=== PATIENT | male | born 1940 | race Caucasian/White ===

== ENCOUNTER 2019-06-22 09:13 | Emergency (ER) | payer BC, OTHER ==
[2019-06-22 09:27] VITALS: BP 148/87; PULSE 58; TEMP 98.6; BMI 25.5
--- NOTE | 2019-06-22 09:40 | PDOC ---
History of Present Illness - General Chief Complaint: Bite Stated Complaint: RT ARM ? TICK BITE Time Seen by Provider: 06/22/19 09:37 History Source: Patient - History of Present Illness Initial Comments: 06/22/19 09:45 Pt presents to the ED because he discovered a cherelle on his R forearm arm and is concerned that he had a tick bite. Denies other complaints. Denies seeing a tick. 06/22/19 09:57 Past History - Past Medical History Allergies/Adverse Reactions: Allergies Allergy/AdvReac Type Severity Reaction Status Date / Time No Known Allergies Allergy Verified 06/22/19 09:14 Home Medications: Ambulatory Orders Atenolol [Tenormin] 25 mg PO DAILY 12/05/12 Atorvastatin Calcium [Lipitor] 5 mg PO DAILY 12/05/12 Clopidogrel Bisulfate [Plavix] 75 mg PO DAILY 12/05/12 Cardiac Disorders: Yes (CAD, RBBB, IRREGULAR HEART RATE) COPD: No HTN: Yes Hypercholesterolemia: Yes - Surgical History Abdominal Surgery: Yes (HERNIA REPAIR, REPAIR FOR GI BLEED) Cardiac Surgery: Yes (4 BYPASS, 8 STENTS) - Immunization History Td Vaccination: Yes - Suicide/Smoking/Psychosocial Hx Smoking Status: No Smoking History: Never smoked Have you smoked in the past 12 months: No Number of Cigarettes Smoked Daily: 0 Cigars Per Day: 1 Information on smoking cessation initiated: No Hx Alcohol Use: (occasional) Review of Systems - Review of Systems Able to Perform ROS?: Yes Is the patient limited [place] proficient: No Integumentary: Yes: Bruising (single 1 cm bruise to R forearm) *Physical Exam - Vital Signs Last Vital Signs Temp Pulse Resp BP Pulse Ox 98.6 F 58 L 16 148/87 97 06/22/19 09:13 06/22/19 09:13 06/22/19 09:13 06/22/19 09:13 06/22/19 09:13 - Physical Exam Comments: 06/22/19 09:52 Gen: Alert, NAD Skin: 1 cm ecchymosis, with very small scab in center. No erythema or central clearing. 06/22/19 09:52 Medical Decision Making - Medical Decision Making 06/22/19 09:57 pt presents to the Ed with concern about a tick bite. Does not report seeing a tick. Area of concern is consistent with an ecchymosis, not a rash consistent with tick bite. Will discharge. *DC/Admit/Observation/Transfer Diagnosis at time of Disposition: Contusion Qualifiers: Encounter type: initial encounter Contusion area: forearm - Discharge Dispostion Disposition: HOME Condition at time of disposition: Good Decision to Admit order: No - Referrals - Patient Instructions Printed Discharge Instructions: DI for Contusion Additional Instructions: you came to the ED for a cherelle on your arm that you were concerned was a tick bite. It is not a tick bite--it is most likely a small bruise. You should return to the ED for new or worsening symptoms. - Post Discharge Activity
== END 2019-06-22 09:55 | disposition home or self-care (01) ==
LOC: FER 09:13
DX: S50.11XA Contusion of right forearm, initial encounter (principal); X58.XXXA Exposure to other specified factors, initial encounter; Y93.9 Activity, unspecified; Y92.9 Unspecified place or not applicable; I25.10 Atherosclerotic heart disease of native coronary artery without angina pectoris; I45.10 Unspecified right bundle-branch block; I49.9 Cardiac arrhythmia, unspecified; I10 Essential (primary) hypertension; E78.00 Pure hypercholesterolemia, unspecified; Z95.1 Presence of aortocoronary bypass graft; Z95.5 Presence of coronary angioplasty implant and graft
CPT/HCPCS: 99282-25